=== PATIENT | male | born 1975 | race Caucasian/White ===

== ENCOUNTER 2022-06-07 07:20 | Day surgery (SDC) | payer BC ==
[~2022-06-07] VITALS: Ht 182.9 cm; Wt 85.7 kg
[2022-06-07 07:38] VITALS: BP 129/83; PULSE 91; TEMP 98.1
[2022-06-07 09:30] VITALS: BP 97/64; PULSE 64; TEMP 97.7
--- NOTE | 2022-06-07 09:30 | NUR ---
PT TO BAY 3 VIA CART FROM ENDO [facility], WALKED TO CHAIR, ALERT AND ORIENATED X3, NO C/O PAIN, CALL LIGHT IN REACH, TAKES WATER AND SNACK
[2022-06-07 09:45] VITALS: BP 108/73; PULSE 64
[2022-06-07 10:00] VITALS: BP 111/75; PULSE 67
--- NOTE | 2022-06-07 10:00 | NUR ---
INTO SEE PT AND TALK WITH HIM, THEN REVIEWED DISCHARGED INST. WITH PT ON PRECAUTIONS TODAY ON MODERATE SEDATION, FOLLOWUP WITH ALSO DISCUSSED. IV D'CD INTACT.
--- NOTE | 2022-06-07 10:24 | NUR ---
PT DISCHARGED VIA W/C TO CAR WITH FRIEND
== END 2022-06-07 10:25 | disposition home or self-care (01) ==
LOC: SDCO 07:20
DX: Z12.11 Encounter for screening for malignant neoplasm of colon (principal); D12.5 Benign neoplasm of sigmoid colon; D12.3 Benign neoplasm of transverse colon; K63.5 Polyp of colon; Z72.0 Tobacco use
CPT/HCPCS: J2704; J7030